=== PATIENT | female | born 1965 | race Caucasian/White ===

== ENCOUNTER 2017-05-05 14:32 | Emergency (ER) | payer BC ==
[~2017-05-05 14:32] MED LIST: Iopamidol 370 76% 100 ML VIAL ONE
[2017-05-05] MEDS ORDERED: Ondansetron HCl/PF 4 MG/2 ML Vial ONE (14:48)
[2017-05-05 14:52] LABS: #Basophils 0.1 thou/uL (0.0-0.2); #Eosinphils 0.1 thou/uL (0.0-0.7); #Lymphocytes 2.3 thou/uL (1.20-3.40); #Monocytes 0.5 thou/uL (0.11-0.59); #Neutrophils 4.4 thou/uL (1.40-6.50); %Lymphocytes 31.3 % (21.0-51.0); %Monocytes 6.7 % (0.0-10.0); Hemoglobin 14.5 g/dL (12.0-16.0); Mean Corpuscular HGB CONC 33.3 g/dL (32.0-36.0); Mean Corpuscular Hemoglobin 29.8 pg (27.0-31.0); Mean Corpuscular Volume 89.5 fl (81.0-99.0); Mean Platelet Volume 8.2 fL (7.4-10.4); Platelet Count 209 thou/uL (130-400); RBC Distribution Width 11.5 % (11.5-14.5); Red Blood Cell (RBC) Count 4.87 mill/uL (4.20-5.40); White Blood Cell (WBC) Count 7.4 thou/uL (4.8-10.8)
[2017-05-05 15:08] LABS: ALT (SGPT) 18 U/L (8-55); AST (SGOT) 19 U/L (5-34); Albumin 4.9 g/dL (3.5-5.0); Alkaline Phosphatase 52 U/L (40-150); Anion Gap 17 mmol/L (10-20); BUN (Urea Nitrogen) 16 mg/dL (9.8-20.1); Bilirubin, Total 0.5 mg/dL (0.2-1.2); Calc. Creatinine Clearance 0 mL/min (70-130); Carbon Dioxide 24 mmol/L (22-29); Chloride 106 mmol/L (98-107); Estimated GFR-MDRD 76; Globulin 2.8 g/dL (2.4-3.5); Glucose 106 mg/dL (70-105); Potassium 4.2 mmol/L (3.5-5.1); Protein, Total 7.7 g/dL (6.0-8.3); Sodium 143 mmol/L (136-145)
[2017-05-05 15:17] LABS: BHCG - Serum Negative (NEGATIVE); Pregs Control Background? CLEAR/WHITE (CLR/WHITE); Pregs Control Bar Appear? YES (CONTROL BAR)
--- NOTE | 2017-05-05 16:55 | CT ---
CT ABDOMEN WITH CONTRAST CT PELVIS WITH CONTRAST: DATE: 05-05-17 TIME: 3:40 p.m. HISTORY: 51-year-old female with right sided abdominal pain. Dr. Mar discussed the findings by telephone, first with Dr. Pro Raman then with Dr. Oral Arce , shortly before this dictation. TECHNIQUE: IV injection of iodinated contrast media: 100 ml Isovue 370 Oral contrast media: Not administered FINDINGS: The appendix is normal. Urinary bladder is mildly distended but otherwise normal. The abdominal aorta , inferior vena cava, bilateral kidneys, pancreas, adrenals, and spleen are normal. Gallbladder is mi ldly distended but there are no signs of acute cholecystitis. A few tiny hypodensities on the order o f 2 mm in size each in the right lobe of the liver are too small to characterize. Otherwise, the live r is normal. No signs of acute colonic diverticulitis. There are multiple diverticula in the descendi ng colon, but no surrounding fat-stranding. There is a large volume of retained stool throughout the colon. No small bowel dilation. No ascites or pneumoperitoneum. No evidence of enlargement of the ova raheel. IMPRESSION: 1. Normal appendix. 2. Large volume of colonic stool suggestive of constipation. Recommend clinical correlation. 3. Diverticulosis of descending colon without acute diverticulitis. CHRISTIANO Wade POS: TOREY
--- NOTE | 2017-05-05 17:02 | ULT ---
PELVIC ULTRASOUND: Date: 05-05-17 History: Right lower quadrant pain, on and off. Patient currently has sharp right lower quadrant pain . FINDINGS: Multiple transabdominal and endovaginal sonographic images of the pelvis are obtained. The uterus demonstrates a normal sonographic appearance measuring 8.9 cm x 3.9 cm x 5.7 cm. Endometri al stripe measures 0.45 cm which is within normal limits a post-menopausal female patient. The right ovary measures 1.9 cm x 1.5 cm x 1.2 cm with the left ovary measuring 2.4 cm x 1.8 cm x 2.5 cm. Ther e is a 1.8 cm hypoechoic cystic appearing lesion involving the left ovary. While there does appear to be posterior acoustic enhancement in this region, there is limited evaluation of this cystic lesion due to shadowing from adjacent bowel which precludes adequate evaluation. While this may represent a simple ovarian cyst, this cannot be confirmed on this exam. Doppler evaluation of each ovary with spectral analysis and color flow evaluation demonstrates arteri al flow. No free fluid is seen in the cul-de-sac. Incidental imaging of the gallbladder and right kidney was p erformed which demonstrates no hydronephrosis, no gallbladder calculi visualized. IMPRESSION: 1. Left ovarian cystic lesion not well characterized on this exam due to prominent shadowing from adj acent bowel gas but may represent a cyst. This measures 1.8 cm. 2. Normal appearing right ovary. 3. Arterial flow is documented in each ovary. 4. No free fluid is seen in the cul-de-sac. 5. Endometrial stripe at the upper limits of normal in thickness for post-menopausal patient. POS: TOREY
== END 2017-05-05 16:58 | disposition home or self-care (01) ==
LOC: SCSER 14:32
DX: K59.00 Constipation, unspecified (principal)
CPT/HCPCS: 74177; 76856; 80053; 83690; 84703; 85025; 96361; 96374; 96375; J1170; J2405

== ENCOUNTER 2018-01-29 13:43 | Outpatient (CLI) | payer BC | END 2018-01-29 13:44 | disposition home or self-care (01) | LOC: BICMAMMO 13:43 | PROVIDERS: ATTEND Internal Medicine | DX: Z12.31 Encounter for screening mammogram for malignant neoplasm of breast (principal); Z80.3 Family history of malignant neoplasm of breast | CPT/HCPCS: 77063; 77067 ==

== ENCOUNTER 2021-03-13 12:59 | Outpatient (CLI) | payer BC ==
[2021-03-13 13:53] LABS: #Eosinphils 0.3 10x3/uL (0.0-0.5); #Monocytes 0.7 10x3/uL (0.0-1.1); #Neutrophils 3.6 10x3/uL (1.5-8.4); %Basophils 0.6 % (0.0-2.0); %Eosinophils 3.6 % (0.0-6.0); %Lymphocytes 32.8 % (18.0-47.0); %Monocytes 9.6 % (0.0-10.0); %Neutrophils 52.8 % (40.0-75.0); Hemoglobin 13.1 g/dL (12.0-15.5); Mean Corpuscular HGB CONC 32.5 g/dL (32.0-36.0); Mean Corpuscular Hemoglobin 30.2 pg (27.0-33.0); Mean Corpuscular Volume 92.9 fl (81.6-98.3); Mean Platelet Volume 9.7 fl (7.4-10.4); Platelet Count 223 10x3/uL (150-450); RBC Distribution Width 12.9 % (11.5-14.5); Red Blood Cell (RBC) Count 4.34 10x6/uL (3.90-5.03); White Blood Cell (WBC) Count 6.9 10x3/uL (3.5-10.5)
[2021-03-13 15:33] LABS: Bilirubin Neg (Negative); Blood, Urine Negative (Negative); Clarity Clear (Clear); Glucose, Urine (Dipstick) Normal (Negative); Ketone, Urine Negative (Negative); Leukocyte Negative (Negative); Nitrite Negative (Negative); Protein, Urine (Dipstick) Negative (Neg-Trace); Specific Gravity, Urine 1.015 (1.002-1.036); Urobilinogen Normal mg/dL (Less than 2)
[2021-03-14 07:27] LABS: SARS-CoV-2 PCR by NAA Not Detected (NotDetected)
== END 2021-03-13 13:00 | disposition home or self-care (01) ==
LOC: LABBT 12:59
PROVIDERS: ATTEND Orthopaedic Surgery Hand Surgery
DX: Z01.812 Encounter for preprocedural laboratory examination (principal); Z20.822 Contact with and (suspected) exposure to COVID-19
CPT/HCPCS: 81003; 85025; U0003; U0005

== ENCOUNTER 2021-03-15 11:21 | Day surgery (SDC) | payer BC ==
[2021-03-13 15:27] VITALS: BMI 24.0
[2021-03-15] MEDS ORDERED: Lidocaine 1% MPF 2 ML VIAL ONE (12:51)
[2021-03-15] MEDS ORDERED: Midazolam HCl 2 mg/2 ml Vial ONE (13:33)
[2021-03-15] MEDS ORDERED: Fentanyl 100 MCG/2 ML VIAL ONE ×2 (13:33→13:51)
[2021-03-15] MEDS ORDERED: HYDROmorphone 2 MG/ML VIAL ONE (13:52)
[2021-03-15] MEDS ORDERED: Thrombin 5000 UNITS/5 ML VIAL ONE (14:28)
[2021-03-15] MEDS ORDERED: Bupivacaine PF 0.5% 30 ML VIAL ONE (14:28)
[2021-03-15] MEDS ORDERED: Neomycin-Polymyxin 1 ML AMP ONE (14:28)
[2021-03-15] MEDS ORDERED: ceFAZolin 2 GM/Dextrose 50 ML IVPB ONE (14:44)
[2021-03-15] MEDS ORDERED: Bupivacaine HCl 0.5%/Epinephrine 1:200,000/PF 30 ml Vial ONE (14:58)
[2021-03-15] MEDS ORDERED: Dexamethasone 20 MG/5 ML VIAL ONE (14:58)
[2021-03-15] MEDS ORDERED: PHENYLEPHRINE-NS 100 MCG/ML 10 ML SYRINGE ONE (14:58)
[2021-03-15] MEDS ORDERED: PROPOFOL 200 MG/20 ML VIAL ONE (14:58)
[2021-03-15] MEDS ORDERED: Ondansetron PF 4 MG/2 ML Vial ONE (14:58)
[2021-03-15] MEDS ORDERED: Lidocaine 1% PF 5 ML VIAL ONE (14:58)
[2021-03-15] MEDS ORDERED: Bacitracin Zinc Ointment 30 gm TUBE ONE (15:12)
== END 2021-03-15 18:15 | disposition home or self-care (01) ==
LOC: SDC 11:21
PROVIDERS: ATTEND Orthopaedic Surgery Hand Surgery
PROC: 3E0T3BZ Introduction of Anesthetic Agent into Peripheral Nerves and Plexi, Percutaneous Approach (ICD-10-PCS; principal; 2021-03-15)
PROC: 0LS80ZZ Reposition Left Hand Tendon, Open Approach (ICD-10-PCS; principal; 2021-03-15)
DX: S63.418A Traumatic rupture of collateral ligament of other finger at metacarpophalangeal and interphalangeal joint, initial encounter (principal); W19.XXXA Unspecified fall, initial encounter
CPT/HCPCS: 76000; C1713; J0690; J1100; J1170; J2250; J2405; J2704; J3010; S0020

== ENCOUNTER 2021-04-26 13:47 | Outpatient (CLI) | payer BC | END 2021-04-26 13:48 | disposition home or self-care (01) | LOC: BICMAMMO 13:47 | PROVIDERS: ATTEND Internal Medicine | DX: Z12.31 Encounter for screening mammogram for malignant neoplasm of breast (principal); Z80.3 Family history of malignant neoplasm of breast | CPT/HCPCS: 77063; 77067 ==

== ENCOUNTER 2024-01-09 12:04 | Outpatient (CLI) | payer BC | END 2024-01-09 12:05 | disposition home or self-care (01) | LOC: BICMAMMO 12:04 | PROVIDERS: ATTEND Family Medicine | DX: Z12.31 Encounter for screening mammogram for malignant neoplasm of breast (principal); Z80.3 Family history of malignant neoplasm of breast | CPT/HCPCS: 77063; 77067 ==